=== PATIENT | female | born 1965 ===

== ENCOUNTER 2023-05-27 05:24 | Inpatient (IN) | payer OTHER ==
[2023-05-15 08:58] LABS: URINE APPEARANCE Clear; URINE BILIRRUBIN Negative (NEGATIVE); URINE BLOOD Trace; URINE COLOR Yellow; URINE LEUKOCYTE Negative; URINE NITRATE Negative; URINE PROTEIN 30 (NEGATIVE); URINE UROBILINOGEN 0.2 E.U./dl
[2023-05-15 09:00] LABS: HEMATOCRIT 41.6 % (36.0-45.00); HEMOGLOBIN 13.6 g/dL (12.0-15.00); MEAN CELL VOLUME 91.6 fL (80.00-100.00); MEAN CORPUSCULAR HEMOGLOBIN 29.9 pg (27.00-32.0); MEAN CORPUSCULAR HGB CONC 32.6 g/dl (32.0-36.0); PLATELET COUNT 188 K/uL (150-450); RED BLOOD COUNT 4.54 M/uL (4.00-6.00); RED CELL DISTRIBUTION WIDTH 16.1 % (11.5-14.5)
[2023-05-15 09:03] LABS: URINE BACTERIA 576.8 uL (0.0-1933); URINE EPITHELIAL CELLS 9.8 uL (0.0-38.8); URINE GLUCOSE >=1000 MG/DL (NEGATIVE); URINE RBC 6.3 uL (0.0-20.8); URINE WBC 85.1 uL (0.0-23.2)
[2023-05-15 09:32] LABS: ALBUMIN 3.8 gm/dL (3.4-5.0); BILIRUBIN TOTAL 0.35 mg/dL (0.3-1.2); CALCIUM 9.1 mg/dL (8.5-10.1); CREATININE SERUM 1.51 mg/dL (0.55-1.02); GFR 35.78; GLOBULINA 3.7 G/DL (2.4-3.5); POTASSIUM 4.34 mEq/L (3.5-5.1); TOTAL PROTEIN 7.5 gm/dL (6.4-8.2)
[2023-05-15 09:38] LABS: INR < 0.93; PARTIAL THROMBOPLASTIN TIME 27.9 SECONDS (22.0-34.0); PROTHROMBIN TIME 9.7 SECONDS (9.0-11.5)
[~2023-05-27] VITALS: Ht 157.5 cm; Wt 79.4 kg
[~2023-05-27 05:24] MED LIST: ALTACE1.25 MG PO; FARXIGA10 MG PO; TOPROL XL25 M1 PO
[2023-05-27] MEDS ORDERED: CEFAZOLIN SODIUM 1,000 MG VIAL ONE ×2 (06:44→11:45)
[2023-05-27] MEDS ORDERED: CEFAZOLIN SODIUM 1,000 MG VIAL IV ONE (08:45)
[2023-05-27] MEDS ORDERED: MORPHINE SULFATE 4 MG/ML VIAL IV SCH (09:30)
[2023-05-27] MEDS ORDERED: ENOXAPARIN SODIUM 40 MG/0.4 ML SYRINGE SUBCUTANEO SCH (09:31)
[2023-05-27] MEDS ORDERED: FAMOTIDINE/PF 20 MG/2 ML VIAL IV SCH (09:31)
[2023-05-27] MEDS ORDERED: MORPHINE SULFATE 4 MG/ML VIAL IV ONE (10:00)
[2023-05-27] MEDS ORDERED: ONDANSETRON HCL 2 MG/ML VIAL ONE (10:44)
[2023-05-27] MEDS ORDERED: FAMOTIDINE/PF 20 MG/2 ML VIAL ONE (11:46)
[2023-05-27] MEDS ORDERED: CEFAZOLIN SODIUM 1,000 MG VIAL IV SCH (12:00)
[2023-05-27] MEDS ORDERED: ALBUTEROL SULFATE 3 ML/2.5 MG AMPUL.NEB IH ONE ×2 (13:04→13:55)
[2023-05-27] MEDS ORDERED: ENALAPRILAT DIHYDRATE 1.25 MG/ML VIAL IV PRN (13:30)
[2023-05-27] MEDS ORDERED: INSULIN LISPRO 1,000 UNIT/10 ML UNITS SUBCUTANEO PRN (13:30)
[2023-05-27] MEDS ORDERED: DEXTROSE 50 % IN WATER 0.5 G/ML DISP.SYRIN IV PRN (13:30)
[2023-05-27 23:26] LABS: ABG PH 7.378 (7.35-7.45); ABG PO2 80.3 mmHg (80-100); ABG pCO2 35.2 mmHg (35-45); BASE EXCESS -4.1 mmol/l; BICARBONATE 20.3 mmol/l (23-25); SaO2 95.3 %; Tco2 21.3 mmol/l
[2023-05-27 23:27] LABS: allen test SATISFACTORY; o2 21 %; puncture site RADIAL RIGHT
[2023-05-28] MEDS ORDERED: METOPROLOL SUCCINATE 25 MG TAB.SR.24H PO SCH (09:00)
[2023-05-28] MEDS ORDERED: RAMIPRIL 2.5 MG CAPSULE PO SCH (09:00)
== END 2023-05-28 17:41 | disposition home or self-care (01) | DRG 328 ==
LOC: CIR.AMB 05:24 → O/R 10:31 → SURH 10:31
PROVIDERS: Internal Medicine; ADMIT Surgery; ATTEND Surgery
PROC: 8E0W4CZ Robotic Assisted Procedure of Trunk Region, Percutaneous Endoscopic Approach (ICD-10-PCS; 2023-05-27)
PROC: 0BQT4ZZ Repair Diaphragm, Percutaneous Endoscopic Approach (ICD-10-PCS; principal; 2023-05-27 07:00)
DX: K44.9 Diaphragmatic hernia without obstruction or gangrene (principal); Z20.822 Contact with and (suspected) exposure to COVID-19
CPT/HCPCS: 43281; S2900